=== PATIENT | male | born 1970 | race Two or more races ===

== ENCOUNTER 2025-02-08 08:36 | Emergency (ER) | payer SELFPAY ==
[2025-02-08 08:46] VITALS: BP 160/90; PULSE 95; RESP 16; TEMP 36.7; O2SAT 98
[2025-02-08 08:47] VITALS: BMI 25.0
--- NOTE | 2025-02-08 08:50 | XR_ITS ---
Examination: CT brain head without contrast. 2-D sagittal coronal reconstructions Date and time of exam: February 08, 2025, 0956 hours INDICATIONS: Patient had a tree falling on the head this morning, head pain CTDI: vol (mGy): 52.7 DLP: (mGycm): 1099 Technique: Multiple CT axial sections of the brain have been obtained, 5 mm slice thickness. Contrast has not been administered. 2-D sagittal, coronal reconstructions have been obtained Low dose protocols were performed. One or more of the following dose reduction techniques were used; automated exposure control, adjustment of the mA and/or KV according to patient size, use of iterative reconstruction technique. Findings: No significant ventricular enlargement. Intra-axial or extra-axial hemorrhage density is not seen. No mass effect or midline shift Basal cisterns are not remarkable. Fourth ventricle is midline. Cranial vault intact. Impression: Negative for acute hemorrhage, mass effect or midline shift
--- NOTE | 2025-02-08 08:50 | XR_ITS ---
Examination: CT chest, without intravenous contrast. CT abdomen, without intravenous contrast. CT pelvis, without intravenous contrast. 2-D sagittal and coronal reconstructions. 3-D reconstructions. Date and time of exam: 02/08/2025, 10:03 a.m. INDICATION: Upper back and lower back pain after tree fell on the patient COMPARISON: None CTDI vol (mgy) 5.56 DLP (MGycm) 431 Technique: Multiple CT images, 3.0 mm slice thickness, obtained chest, abdomen, pelvis, with the high-resolution 64 slice scanner.. Sagittal and coronal 2-D reconstructions are obtained. 3-D reconstructions Low dose protocols were performed. One or more of the following dose reduction techniques were used; automated exposure control, adjustment of the mA and/or KV according to patient size, use of iterative reconstruction technique. Findings: Lack of intravenous contrast limits evaluation for solid organs, vasculature, and lymph nodes. CHEST: Line/Tubes/Devices: Lungs and large airways: The central airways are patent. Very mild bibasilar dependent subsegmental atelectases are present. No findings suggestive of pulmonary contusion or pneumonia. No mass. Pleura: No pleural effusion or pneumothorax. No concerning pleural thickening. Mediastinum and román: No lymphadenopathy or other masses. Heart and great vessels: No cardiomegaly, significant pericardial effusion, or thoracic aortic aneurysm. Mild aortic valve calcification noted. Chest wall, lower neck, axillae: No lymphadenopathy or other masses. ABDOMEN AND PELVIS: Liver and biliary system: No significant hepatic enlargement. No gross liver mass. No calcified gallstones or findings concerning for acute cholecystitis or biliary ductal obstruction. Spleen: Within normal limits of size. No discrete mass. Pancreas: No contour deforming mass or overt main pancreatic duct dilatation. No evidence for acute inflammation. Adrenal glands: No significant findings. Kidneys and ureters: No contour deforming mass. No calculi or hydronephrosis. Bladder: No calculi or discrete mass. Pelvic organs: No masses or acute findings. Bowel/Peritoneal cavity: No contour deforming mass. No inflammatory changes. The appendix is normal. Moderate fecal burden is present diffusely throughout the colon at time of imaging. Fecal like material is also present in the multiple small bowel up suggesting some stasis/delayed motility but otherwise no findings concerning for acute high-grade bowel obstruction. No hematoma, ascites or free air. No concerning peritoneal thickening. Lymph nodes/retroperitoneum: No pathologically enlarged lymph nodes or other masses. No hematoma or other abnormal collections. Vessels: Very mild aortoiliac atherosclerotic calcifications without aneurysm. Abdominal/Pelvic wall: Very small fat-containing left inguinal hernia without complication. Musculoskeletal structures: Low-grade acute compression fractures involving the anterior halves of the superior endplates of T4-T5, to a slightly lesser degree at T3 and T2 with mild displacement/angulation of the anterior superior corners of the vertebral bodies at these levels no additional acute compression fractures are identified in the thoracic spine. No acute fractures in the lumbar spine. Chronic compression deformities of the endplates noted in the lumbar spine, most pronounced at L5 at the superior and inferior endplates.. Equivocal anterior upper sternal fracture versus developmental change (sagittal image 112). No acute pelvic or proximal femur fracture. Sequela of remote intramedullary nail identified in the right femur with mild heterotopic ossification at the superior margin of the intertrochanteric region. Osteoarthritic changes are present at both hips including subchondral cysts, most pronounced in the left femoral head neck junction anteriorly. Small bone island is also identified in the left femoral head. IMPRESSION: Low-grade acute compression fractures of the superior endplates of T2-T5. Equivocal nondisplaced sternal fracture versus more likely developmental change. No evidence for acute organ injury throughout the chest, abdomen and pelvis otherwise.
--- NOTE | 2025-02-08 08:50 | XR_ITS ---
Examination: CT cervical spine without contrast 2-D sagittal reconstructions 2-D coronal reconstructions 3-D reconstructions. Exam date and time: February 08, 2025, 0956 hours INDICATIONS: Tree fell on the patient's neck today, neck pain CTDI:vol (mGy) 13.8 DLP: (mGycm) 299 Technique: Multiple 2 mm axial sections of the cervical spine have been obtained. The coronal and sagittal reconstructions have been obtained. 3-D reconstructions have been obtained. Low dose protocols were performed. One or more of the following dose reduction techniques were used; automated exposure control, adjustment of the mA and/or KV according to patient size, use of iterative reconstruction technique. Findings: Axial sections demonstrate intact base of the skull. C1 exhibit satisfactory relationship to the odontoid. No acute cervical vertebral body fracture seen. Alignment posterior spinous processes satisfactory. Irregularity of the superior endplate T2, sagittal image 42, axial image 110 Impression: No acute cervical fracture. Suspicious for fracture T2 vertebral body upper endplate, recommend dedicated CT thoracic spine without contrast follow-up
[2025-02-08 09:09] VITALS: BP 164/121; PULSE 86; RESP 17; O2SAT 97
[2025-02-08] MEDS: ONDANSETRON INJ 2 MG/ML INJ 2 ML 4 MG IVP (09:45)
[2025-02-08] MEDS: MORPHINE SULF INJ 4 MG/ML VIAL IVP (09:46)
--- NOTE | 2025-02-08 09:49 | EDNOTE_ITS ---
<Statement entered by Yaritaz Blake MD - 02/09/25 16:14> As co-signing physician, I was present and available for consult prn. I concur with the plan and care as documented by the midlevel provider. ED Head Injury RME/HPI General Chief complaint: Head Injury Stated complaint: HIT IN BACK OF HEAD BY A TREE, SOB, CHEST PAIN Time Seen by Provider: 02/08/25 09:08 Arrival date/time: 02/08/25 08:36 RME / HPI RME / HPI Narrative: 55 year old male with no stated medical history presents to the ED for evaluation of mid back pain following an injury while at work today. States they had dug holes near medium to large trees to check for the gas pipes running near them. Patient states his coworker was shaking on the the trees with machinery and in doing so, the tree snapped at the base. Patient states he was looking down into a hole when the tree struck him on the back of the head and back with momentary LOC. States he woke up on the floor with coworkers surrounding him. States he was able to stand with assistance and ambulatory on scene. In the ED, patient complains of pain to the back of his head, mid back, and chest. No other injuries or complaints reported. Related Data Previous Rx's ?Medication ?Instructions ?Recorded hydrocodone 5 mg-acetaminophen 325 1 tab PO Q6H PRN pa in #14 tabs 02/08/25 mg tablet ibuprofen 600 mg tablet 600 mg PO Q6H PRN pain #30 t abs 02/08/25 Allergies Allergy/AdvReac Type Severity Reaction Status Date / Time No Known Allergies Allergy Verified 02/08/25 08:39 Review of Systems Review of Systems Systems Reviewed: All systems reviewed, normal except as documented Past Medical History Past Medical History CARDIAC: Negative Congestive Heart Failure RESPIRATORY: Negative Chronic Obstructive Pulmonary Disease (COPD) GENITOURINARY: Negative Renal Disease ENDOCRINE: Positive Diabetes Mellitus Type 2; Negative Diabetes Mellitus Type 1 Social History SMOKING STATUS: Current every day smoker ED Exam Narrative Physical exam: GENERAL APPEARANCE: alert and oriented x 4, well-developed, well-nourished, no acute distress HEENT: Normocephalic, atraumatic; pupils equal, round, reactive to light; EOMI; mucous membranes pink, moist; oropharynx clear NECK: Supple LUNGS: CTABL; no wheezes, no rales, no rhonchi HEART: Regular rate, regular rhythm; normal S1, S2; no murmurs CHEST: upper to mid sternal tenderness with no deformity of crepitus ABDOMEN: non distended; normal BS; soft, no tenderness, no guarding, no rebound; no masses, no organomegaly, no hernia BACK: Mid back thoracic spine tenderness, no step off, no deformity EXTREMITIES: atraumatic; no edema NEUROLOGIC: awake; alert and oriented x4; cranial nerves II-XII grossly intact; no focal sensory or motor deficits PSYCHIATRIC: appropriate mood and affect SKIN: warm, dry, normal color; no rashes Course Quality Measures none Orders Category Date Time Status EKG (ED ONLY) *Do not use* NOW Care 02/08/25 08:44 Completed Immobilize cervical spine NOW Care 02/08/25 08:[address] cervical spine wo con Stat Exams 02/08/25 08:[address] chest abdomen pelvis wo Stat Exams 02/08/25 08:[address] head/brain wo con Stat Exams 02/08/25 08:50 Completed EKG (ED Only) Stat Exams 02/08/25 08:44 Ordered Morphine* Inj Med 02/08/25 09:40 Discontinued 4 mg IVP X1 ONE Ondansetron Inj [Zofran Inj] Med 02/08/25 09:40 Discontinued 4 mg IVP X1 ONE Vital Signs Vital signs: Vital Signs Temperature 98.0 F 02/08/25 08:46 Pulse Rate 95 02/08/25 08:46 Respiratory Rate 16 02/08/25 08:46 Blood Pressure 160/90 H 02/08/25 08:46 Pulse Oximetry (%) 98 02/08/25 08:46 Oxygen Delivery Method Room Air 02/08/25 08:46 Pulse ox is 98% on room air which is adequate. Head Injury MDM Narrative MDM Narrative:: Gabriella Aarnda am scribing for and in the presence of Dr. Blake. Patient data External records reviewed:: [facility] previous records Clinical information provided by:: patient Social determinants that could affect healthcare access:: none Patient has the following chronic illnesses:: Diabetes How is presenting disease/condition affected by chronic disease/condition?: exa cerbated by Evaluation data The following diagnostics were reviewed and interpreted by me:: lab results and radiology exam(s) Lab and/or radiology exams considered but not ordered:: None Interpretation Summary: Ordering Physician: Heladio BALDERRAMA)Glen NP Date of Service: 02/08/25 Procedure(s): CT cervical spine wo con Accession Number(s): [id number] cc: Heladio BALDERRAMA),Glen YOUNG; Tre Mayers MD; NO PRIMARY/FAMILY,PHYSICIAN~ Examination: CT cervical spine without contrast 2-D sagittal reconstructions 2-D coronal reconstructions 3-D reconstructions. Exam date and time: February 08, 2025, 0956 hours INDICATIONS: Tree fell on the patient's neck today, neck pain CTDI:vol (mGy) 13.8 DLP: (mGycm) 299 Technique: Multiple 2 mm axial sections of the cervical spine have been obtained. The coronal and sagittal reconstructions have been obtained. 3-D reconstructions have been obtained. Low dose protocols were performed. One or more of the following dose reduction techniques were used; automated exposure control, adjustment of the mA and/or KV according to patient size, use of iterative reconstruction technique. Findings: Axial sections demonstrate intact base of the skull. C1 exhibit satisfactory relationship to the odontoid. No acute cervical vertebral body fracture seen. Alignment posterior spinous processes satisfactory. Irregularity of the superior endplate T2, sagittal image 42, axial image 110 Impression: No acute cervical fracture. Suspicious for fracture T2 vertebral body upper endplate, recommend dedicated CT thoracic spine without contrast follow-up Dictated By: Tre Mayers MD Signed By: <Electronically signed by Tre Mayers MD in OV> 02/08/25 1020 Ordering Physician: Glen Leija NP, NP Date of Service: 02/08/25 Procedure(s): CT chest abdomen pelvis wo Accession Number(s): [id number] cc: Heladio BALDERRAMA),Glen DIRECTOR OF ATHLETICS; NO PRIMARY/FAMILY,PHYSICIAN; Sosnowski,Nestor L DO~ Examination: CT chest, without intravenous contrast. CT abdomen, without intravenous contrast. CT pelvis, without intravenous contrast. 2-D sagittal and coronal reconstructions. 3-D reconstructions. Date and time of exam: 02/08/2025, 10:03 a.m. INDICATION: Upper back and lower back pain after tree fell on the patient COMPARISON: None CTDI vol (mgy) 5.56 DLP (MGycm) 431 Technique: Multiple CT images, 3.0 mm slice thickness, obtained chest, abdomen, pelvis, with the high-resolution 64 slice scanner.. Sagittal and coronal 2-D reconstructions are obtained. 3-D reconstructions Low dose protocols were performed. One or more of the following dose reduction techniques were used; automated exposure control, adjustment of the mA and/or KV according to patient size, use of iterative reconstruction technique. Findings: Lack of intravenous contrast limits evaluation for solid organs, vasculature, and lymph nodes. CHEST: Line/Tubes/Devices: Lungs and large airways: The central airways are patent. Very mild bibasilar dependent subsegmental atelectases are present. No findings suggestive of pulmonary contusion or pneumonia. No mass. Pleura: No pleural effusion or pneumothorax. No concerning pleural thickening. Mediastinum and román: No lymphadenopathy or other masses. Heart and great vessels: No cardiomegaly, significant pericardial effusion, or thoracic aortic aneurysm. Mild aortic valve calcification noted. Chest wall, lower neck, axillae: No lymphadenopathy or other masses. ABDOMEN AND PELVIS: Liver and biliary system: No significant hepatic enlargement. No gross liver mass. No calcified gallstones or findings concerning for acute cholecystitis or biliary ductal obstruction. Spleen: Within normal limits of size. No discrete mass. Pancreas: No contour deforming mass or overt main pancreatic duct dilatation. No evidence for acute inflammation. Adrenal glands: No significant findings. Kidneys and ureters: No contour deforming mass. No calculi or hydronephrosis. Bladder: No calculi or discrete mass. Pelvic organs: No masses or acute findings. Bowel/Peritoneal cavity: No contour deforming mass. No inflammatory changes. The appendix is normal. Moderate fecal burden is present diffusely throughout the colon at time of imaging. Fecal like material is also present in the multiple small bowel up suggesting some stasis/delayed motility but otherwise no findings concerning for acute high-grade bowel obstruction. No hematoma, ascites or free air. No concerning peritoneal thickening. Lymph nodes/retroperitoneum: No pathologically enlarged lymph nodes or other masses. No hematoma or other abnormal collections. Vessels: Very mild aortoiliac atherosclerotic calcifications without aneurysm. Abdominal/Pelvic wall: Very small fat-containing left inguinal hernia without complication. Musculoskeletal structures: Low-grade acute compression fractures involving the anterior halves of the superior endplates of T4-T5, to a slightly lesser degree at T3 and T2 with mild displacement/angulation of the anterior superior corners of the vertebral bodies at these levels no additional acute compression fractures are identified in the thoracic spine. No acute fractures in the lumbar spine. Chronic compression deformities of the endplates noted in the lumbar spine, most pronounced at L5 at the superior and inferior endplates.. Equivocal anterior upper sternal fracture versus developmental change (sagittal image 112). No acute pelvic or proximal femur fracture. Sequela of remote intramedullary nail identified in the right femur with mild heterotopic ossification at the superior margin of the intertrochanteric region. Osteoarthritic changes are present at both hips including subchondral cysts, most pronounced in the left femoral head neck junction anteriorly. Small bone island is also identified in the left femoral head. IMPRESSION: Low-grade acute compression fractures of the superior endplates of T2-T5. Equivocal nondisplaced sternal fracture versus more likely developmental change. No evidence for acute organ injury throughout the chest, abdomen and pelvis otherwise. Dictated By: Nestor Sesay DO Signed By: <Electronically signed by Nestor Sesay DO in OV> 02/08/25 1034 Ordering Physician: Glen Leija NP, NP Date of Service: 02/08/25 Procedure(s): CT head/brain wo con Accession Number(s): [id number] cc: Glen Leija NP, NP; Tre Mayers MD; NO PRIMARY/FAMILY,PHYSICIAN~ Examination: CT brain head without contrast. 2-D sagittal coronal reconstructions Date and time of exam: February 08, 2025, 0956 hours INDICATIONS: Patient had a tree falling on the head this morning, head pain CTDI: vol (mGy): 52.7 DLP: (mGycm): 1099 Technique: Multiple CT axial sections of the brain have been obtained, 5 mm slice thickness. Contrast has not been administered. 2-D sagittal, coronal reconstructions have been obtained Low dose protocols were performed. One or more of the following dose reduction techniques were used; automated exposure control, adjustment of the mA and/or KV according to patient size, use of iterative reconstruction technique. Findings: No significant ventricular enlargement. Intra-axial or extra-axial hemorrhage density is not seen. No mass effect or midline shift Basal cisterns are not remarkable. Fourth ventricle is midline. Cranial vault intact. Impression: Negative for acute hemorrhage, mass effect or midline shift Dictated By: Tre Mayers MD Signed By: <Electronically signed by Tre Mayers MD in OV> 02/08/25 1022 Medications / Prescriptions Medications or Prescriptions considered but not ordered:: None Medication administrations:: Medication Administration History Discontinued Medications Morphine Sulfate (Morphine Sulf Inj 4 Mg/Ml Vial) 4 mg IVP X1 ONE Stop: 02/08/25 09:41 Last Admin: 02/08/25 09:46 Dose: 4 mg Documented By: Ondansetron HCl (Ondansetron Inj 2 Mg/Ml Inj 2 Ml) 4 mg IVP X1 ONE Stop: 02/08/25 09:41 Last Admin: 02/08/25 09:45 Dose: 4 mg Documented By: See above Consultations Consultation(s) initiated? (list below): No Diagnosis Differential diagnosis head injury: epidural hematoma, closed head injury, subarachnoid hematoma, subdural hematoma and concussion with loss of consciousness Most likely diagnosis given after review of the tests above:: Traumatic compression fracture of thoracic vertebra Sternal fracture Work related injury Admission Indicated Admission indicated?: not indicated Explain why admission is indicated or not indicated:: With no condition needing emergent intervention, there was no indication for admission. Admission Request Was there a request for admission?: No Disposition Plan Disposition Plan: Discharge Discharge Attestation Discharge Attestation: The patient and all family members were given an opportunity to ask questions and understood the discharge instructions. Discharge instructions specifically effects, indications for sooner follow up or return to the emergency department, and the expected course of current diagnosis. Patient condition: Stable Discharge Plan Plan Patient Disposition: HOME (Self Care) Prescriptions/Referrals Prescriptions/Med Rec: New hydrocodone-acetaminophen 5-325 mg tablet 1 tab PO Q6H MDD 9 PRN (Reason: pain) Qty: 14 0RF ibuprofen 600 mg tablet 600 mg PO Q6H PRN (Reason: pain) Qty: 30 0RF Referrals: No Primary/Family,Physician [Primary Care Provider] - In 1 week Problem List Clinical Impression: Traumatic compression fracture of thoracic vertebra, Sternal fracture, Work related injury Patient/Caregiver Discharge Instructions Education Materials: Back Fracture (Compression Fracture), ED Fracture, Vertebral Compression Print Language: Honduran Stand Alone Forms: Cait Award Info., Patient Portal Info Letter
[2025-02-08 10:34] VITALS: BP 153/87; PULSE 85; RESP 14; TEMP 36.7; O2SAT 95
--- NOTE | 2025-02-08 11:09 | PC.NURSE ---
TLSO BRACE APPLIED TO PT AT THIS TIME.
[2025-02-08 11:53] VITALS: BP 133/86; PULSE 93; RESP 19; TEMP 37.1; O2SAT 98
== END 2025-02-08 12:08 | disposition home or self-care (01) ==
PROVIDERS: Emergency Provider Emergency Medicine
DX: S09.90XA Unspecified injury of head, initial encounter (principal); S22.009A Unspecified fracture of unspecified thoracic vertebra, initial encounter for closed fracture; S22.20XA Unspecified fracture of sternum, initial encounter for closed fracture; X58.XXXA Exposure to other specified factors, initial encounter
CPT/HCPCS: 70450; 71250; 72125; 74176; 93005; 96374; 96375; 99283; J2270; J2405